=== PATIENT | female | born 1935 | race Caucasian/White ===

== ENCOUNTER 2020-02-29 11:51 | Outpatient (CLI) | payer MEDICARE, OTHER ==
[2020-02-29] VITALS (17 sets, daily range): BP systolic 105–146; BP diastolic 56–90
== END 2020-02-29 23:59 | disposition home or self-care (01) ==
LOC: CARD DIAG 11:51
PROVIDERS: ATTEND Psychiatry & Neurology Neurology
DX: R55 Syncope and collapse (principal); Z88.8 Allergy status to other drugs, medicaments and biological substances
CPT/HCPCS: 93660